=== PATIENT | female | born 1995 | race Caucasian/White ===

== ENCOUNTER 2017-01-29 15:23 | Emergency (ER) | payer OTHER ==
[~2017-01-29] VITALS: Ht 157.5 cm; Wt 95.0 kg
[2017-01-29 15:25] VITALS: BP 128/78; PULSE 84; RESP 16; TEMP 98.1; O2SAT 96
[2017-01-29] MEDS ORDERED: SODIUM CHLORIDE 0.9% FLUSH 10 ML FLUSH IV FLUSH PRN (16:00)
--- NOTE | 2017-01-29 16:05 | PD ---
HPI Chief Complaint: Abdominal Pain Time Seen by Provider: 16:03 Travel History International Travel<30 days: No Contact w/Intl Traveler<30days: No Traveled to known affect area: No History of Present Illness HPI 21 YO F with PMH of cholecystectomy presents to the ED for evaluation of "a few months" history of cramping, intermittent, 10/10 right upper quadrant abdominal pain. No alleviating or exacerbating factors reported. Pain lasts 10-15 minutes then spontaneously resolves. Patient endorses a "sore sensation" that lasts for days after the episodes. Patient denies fever, chills, chest pain, palpitations, nausea, vomiting, diarrhea, dysuria, risk of . She states that she saw her primary care provider and was told "my liver enzymes were off." She had an episode this morning that "took my breath away" which prompted her to seek treatment today. PFSH Past Medical History ?: Not LMP: IRREGULAR Past Surgical History Abdominal Surgery: Yes ([facility], age 17) Social History Alcohol Use: No Tobacco Use: No Substance Use: No Allergies-Medications (Allergen,Severity, Reaction): Coded Allergies: No Known Allergies (Unverified , 01/29/17) Reported Meds & Prescriptions Reported Meds & Active Scripts Active No Active Prescriptions or Reported Medications Review of Systems Except as stated in HPI: all other systems reviewed are Neg Physical Exam Narrative GENERAL: Well-nourished, well-developed obese white female no acute distress. SKIN: Focused skin assessment warm/dry. No jaundice. HEAD: Normocephalic. EYES: No scleral icterus. No injection or drainage. NECK: Supple, trachea midline. No JVD or lymphadenopathy. CARDIOVASCULAR: Regular rate and rhythm without murmurs, gallops, or rubs. RESPIRATORY: Breath sounds clear and equal bilaterally. No accessory muscle use. GASTROINTESTINAL: Abdomen soft,, nondistended, tender to palpation in the right upper quadrant and right flank. No palpable masses. Active bowel sounds. MUSCULOSKELETAL: No cyanosis, or edema. Amylase with a normal gait. BACK: Nontender without obvious deformity. No CVA tenderness. Data Data Last Documented VS Vital Signs Date Time Temp Pulse Resp B/P (MAP) Pulse Ox O2 Delivery O2 Flow Rate FiO2 01/29/17 15:25 98.1 84 16 128/78 (95) 96 Room Air Orders Orders Complete Blood Count With Diff (10/3/17 15:58) Comprehensive Metabolic Panel (01/29/17 15:58) Lipase (01/29/17 15:58) Lactic Acid (01/29/17 15:58) Urinalysis - C+S If Indicated (01/29/17 15:58) Us Abdomen Gallbladder (01/29/17 ) Iv Access Insert/Monitor (01/29/17 15:58) Ecg Monitoring (01/29/17 15:58) Oximetry (01/29/17 15:58) Sodium Chloride 0.9% Flush (Ns Flush) (01/29/17 16:00) Ed Urine Pregnancytest Poc (01/29/17 15:58) Labs Laboratory Tests Test 01/29/17 16:39 White Blood Count 11.6 TH/MM3 Red Blood Count 4.48 MIL/MM3 Hemoglobin 13.7 GM/DL Hematocrit 40.6 % Mean Corpuscular Volume 90.5 FL Mean Corpuscular Hemoglobin 30.5 PG Mean Corpuscular Hemoglobin Concent 33.7 % Red Cell Distribution Width 11.9 % Platelet Count 263 TH/MM3 Mean Platelet Volume 8.8 FL Neutrophils (%) (Auto) 64.7 % Lymphocytes (%) (Auto) 26.2 % Monocytes (%) (Auto) 5.9 % Eosinophils (%) (Auto) 2.8 % Basophils (%) (Auto) 0.4 % Neutrophils # (Auto) 7.5 TH/MM3 Lymphocytes # (Auto) 3.0 TH/MM3 Monocytes # (Auto) 0.7 TH/MM3 Eosinophils # (Auto) 0.3 TH/MM3 Basophils # (Auto) 0.0 TH/MM3 CBC Comment DIFF FINAL Differential Comment Urine Color YELLOW Urine Turbidity CLEAR Urine pH 6.5 Urine Specific [place] 1.028 Urine Protein NEG mg/dL Urine Glucose (UA) NEG mg/dL Urine Ketones NEG mg/dL Urine Occult Blood SMALL Urine Nitrite NEG Urine Bilirubin NEG Urine Urobilinogen LESS THAN 2.0 MG/DL Urine Leukocyte Esterase NEG Urine RBC 1 /hpf Urine WBC 1 /hpf Urine Squamous Epithelial Cells 2 /hpf Urine Mucus FEW /lpf Microscopic Urinalysis Comment CULT NOT INDICATED Blood Urea Nitrogen 15 MG/DL Creatinine 0.84 MG/DL Random Glucose 81 MG/DL Total Protein 8.0 GM/DL Albumin 3.8 GM/DL Calcium Level 9.0 MG/DL Alkaline Phosphatase 68 U/L Aspartate Amino Transf (AST/SGOT) 23 U/L Alanine Aminotransferase (ALT/SGPT) 28 U/L Total Bilirubin 0.2 MG/DL Sodium Level 140 MEQ/L Potassium Level 4.0 MEQ/L Chloride Level 105 MEQ/L Carbon Dioxide Level 27.7 MEQ/L Anion Gap 7 MEQ/L Estimat Glomerular Filtration Rate 86 ML/MIN Lactic Acid Level 1.0 mmol/L Lipase 251 U/L [facility] Medical Decision Making Medical Screen Exam Complete: Yes Emergency Medical Condition: Yes Differential Diagnosis surgical adhesions versus biliary colic versus pyelonephritis versus other Narrative Course 21 YO F with PMH of cholecystectomy presents to the ED for evaluation of "a few months" history of cramping, intermittent, 10/10 right upper quadrant abdominal pain. Patient states they episodes last 5-15 minutes, resolve spontaneously. Patient endorses sore sensation following each episode. Patient denies fever, chills, chest pain, palpitations, nausea, vomiting, diarrhea, dysuria, risk of . She states that she saw her primary care provider and was told "my liver enzymes were off." She had a severe episode this morning which prompted her to seek treatment. Vitals reviewed. Physical exam reveals a nontoxic- appearing obese white female in no acute distress. She does have right upper quadrant and right flank tenderness but the exam is otherwise unremarkable. CBC: No concerning abnormalities CMP: unremarkable Lactic: 1.0 UA: No culture indicated ED urine test: negative Right upper quadrant ultrasound: Status post cholecystectomy with slight prominence of the common bile duct. No focal intraductal abnormality by ultrasound. This finding is most consistent with reservoir effect following cholecystectomy.. Mild diffuse increased hepatic echogenicity consistent with hepatic steatosis. I discussed the results of the workup with the patient. She may have a surgical adhesion but this is not a life-threatening problem and can be addressed at the outpatient setting. I suggested that the patient keep a record of when the pain occurs to better track whether this is related to her diet. Patient was provided a copy of her lab work and ultrasound report to present to her primary care provider. She is agreeable to the plan of care. She is stable and discharged home. Diagnosis Primary Impression: Right upper quadrant abdominal pain Referrals: Primary Care Physician Patient Instructions: Chronic Abdominal Pain (ED), General Instructions Additional Instructions: Rest, hydrated. Return to normal, gentle activities as tolerated. Follow-up with your primary care provider for further evaluation. Return to the ED for any urgent or emergent medical condition. Scripts No Active Prescriptions or Reported Meds Disposition: 01 DISCHARGE HOME Condition: Stable Cherie Pendleton Jan 29, 2017 16:05
--- NOTE | 2017-01-29 16:41 | RADRPT ---
EXAM DATE/TIME: 01/29/2017 16:13 [facility] COMPARISON: No previous studies available for comparison. INDICATIONS : Right upper quadrant pain. MEDICAL HISTORY : Right upper quadrant pain. SURGICAL HISTORY : Cholecystectomy. ENCOUNTER: Initial ACUITY: 4-6 months PAIN SCORE: 3/10 LOCATION: Right upper quadrant MEASUREMENTS: LIVER: 14.7 cm length COMMON DUCT: 7 mm RIGHT KIDNEY: 8.8 x 5.6 x 5.0 cm FINDINGS: LIVER: Mild diffuse increased hepatic echogenicity without evidence for significant volume loss or focal mas s. COMMON DUCT: No intraluminal mass or stone visualized. Common bile duct is slightly prominent in size. GALLBLADDER: Gallbladder is surgically absent. PANCREAS: The visualized portions are within normal limits. RIGHT KIDNEY: No evidence of hydronephrosis, stone, or mass. CONCLUSION: 1. Status post cholecystectomy with slight prominence of the common bile duct. No focal intraductal a bnormality by ultrasound. This finding is most consistent with reservoir effect following cholecystec aylin. 2. Mild diffuse increased hepatic echogenicity consistent with hepatic steatosis. Elliot Cesar MD on January 29, 2017 at 16:36 Board Certified Radiologist. This report was verified electronically.
[2017-01-29 17:12] LABS: BLOOD, URINE SMALL (NEG); COMMENT (UR) CULT NOT INDICATED; CULTURE IF INDICATED CULT NOT INDICATED; GLUCOSE,URINE NEG (NEG); KETONE, URINE NEG (NEG); MUCUS URINE FEW /lpf (OCC); NITRITE,URINE NEG (NEG); PH, URINE 6.5 (5.0-8.5); SQUAMOUS EPITHELIAL CELL URINE 2 /hpf (0-5); URINE COLOR YELLOW (YELLW/STRAW)
[2017-01-29 17:14] LABS: AUTOMATED NEUTROPHIL # 7.5 TH/MM3 (1.8-7.7); BASOPHIL % 0.4 % (0.0-2.0); EOSINOPHIL # 0.3 TH/MM3 (0-0.4); EOSINOPHIL % 2.8 % (0.0-4.0); HEMATOCRIT 40.6 % (35.0-46.0); HEMO FLAGS DIFF FINAL; LYMPH % 26.2 % (9.0-44.0); MEAN CELL VOLUME 90.5 FL (80.0-100.0); MEAN CORPUSCULAR HEMOGLOBIN 30.5 PG (27.0-34.0); MEAN CORPUSCULAR HGB CONC 33.7 % (32.0-36.0); MONO % 5.9 % (0.0-8.0); NEUT % 64.7 % (16.0-70.0); PLATELET COUNT 263 TH/MM3 (150-450); RED BLOOD COUNT 4.48 MIL/MM3 (4.00-5.30); RED CELL DISTRIBUTION WIDTH 11.9 % (11.6-17.2); WHITE BLOOD COUNT 11.6 TH/MM3 (4.0-11.0)
[2017-01-29 17:29] LABS: ALKALINE PHOSPHATASE 68 U/L (45-117); TOTAL BILIRUBIN ADULT 0.2 MG/DL (0.2-1.0)
[2017-01-29 17:31] LABS: ALT (GPT) 28 U/L (9-42); ANION GAP 7 MEQ/L (5-15); AST (GOT) 23 U/L (16-38); BICARBONATE 27.7 MEQ/L (21.0-32.0); BLOOD UREA NITROGEN 15 MG/DL (7-18); CHLORIDE 105 MEQ/L (98-107); GLOMERULAR FILTRATION RATE 86 ML/MIN (>89); SODIUM (NA) 140 MEQ/L (136-145)
[2017-01-29 18:17] VITALS: BP 111/75
== END 2017-01-29 18:31 | disposition home or self-care (01) ==
LOC: NEPD 15:23
DX: R10.11 Right upper quadrant pain (principal); Z90.49 Acquired absence of other specified parts of digestive tract
CPT/HCPCS: 76705; 80053; 81001; 83605; 83690; 84703; 85025